=== PATIENT | male | born 1980 | race African-American/Black ===

== ENCOUNTER 2017-01-18 15:18 | Emergency (ER) | payer MEDICAID ==
[~2017-01-18] VITALS: Ht 195.6 cm; Wt 82.0 kg
[~2017-01-18 15:18] MED LIST: HYDR12.54 PO; LABE100T PO
[2017-01-18 23:32] LABS: BASOPHILS % 1.4 % (0.0-2.0); HEMATOCRIT. 39.4 % (42.0-52.0); HEMOGLOBIN. 13.1 g/dL (14.0-18.0); LYMPHOCYTES % 33.2 % (20.0-50.0); MEAN CORPUSCULAR HEMOGLOBIN 28.6 pg (28.0-32.0); MEAN CORPUSCULAR VOLUME 85.9 fL (80.0-94.0); MEAN PLATELET VOLUME 8.3 fl (7.4-10.4); MONOCYTES % 9.3 % (2.0-8.0); NEUTROPHILS % 54.1 % (40.0-76.0); PLATELET 265 x1000/uL (130-400); RED BLOOD CELL COUNT 4.59 mill/uL (4.7-6.1); RED CELL DISTRIBUTION WIDTH 14.2 % (11.6-14.6)
[2017-01-18 23:38] LABS: INR 1.1; PARTIAL THROMBOPLASTIN TIME 26.3 sec (24.0-34.0)
[2017-01-18 23:48] LABS: CARBON DIOXIDE 27 mEq/L (21-32); CHLORIDE 99 mEq/L (98-107); TROPONIN I < 0.02 ng/mL (0.00-0.04)
[2017-01-19 01:07] VITALS: BP 154/114
== END 2017-01-19 00:53 | disposition home or self-care (01) ==
LOC: ER 15:19
DX: R07.89 Other chest pain (principal); I10 Essential (primary) hypertension; F41.9 Anxiety disorder, unspecified
CPT/HCPCS: 36415; 71010; 80053; 83690; 84484; 85025; 85610; 85730; 93005; 99285; Z7610

== ENCOUNTER 2017-05-09 11:57 | Emergency (ER) | payer MEDICAID ==
[~2017-05-09] VITALS: Ht 188 cm; Wt 86.0 kg
[2017-05-09] MEDS ORDERED: DIPHENHYDRAMINE 50MG CAPSULE PO ONE (15:45)
[2017-05-09] MEDS ORDERED: KETOROLAC 60MG/2ML VIAL IM ONE (15:45)
[2017-05-09] MEDS ORDERED: TETRACAINE 0.5% OPHTH DROPS 4ML LEFTEYE ONE (15:45)
[2017-05-09] MEDS ORDERED: FLUORESCEIN SODIUM 1MG/STRIP LEFTEYE ONE (16:45)
[2017-05-09 16:55] VITALS: BP 120/82
== END 2017-05-09 17:50 | disposition home or self-care (01) ==
LOC: ER 15:02
DX: H01.9 Unspecified inflammation of eyelid (principal); I10 Essential (primary) hypertension; F17.210 Nicotine dependence, cigarettes, uncomplicated; Z98.890 Other specified postprocedural states
CPT/HCPCS: 96372; 99284; J1885; Z7610; Q0163

== ENCOUNTER 2017-07-25 10:11 | Emergency (ER) | payer MEDICAID, OTHER ==
[~2017-07-25] VITALS: Ht 188 cm; Wt 90.0 kg
[2017-07-25 11:01] VITALS: BP 148/100
[2017-07-25] MEDS ORDERED: TETANUS, DIPHTHERIA, PERTUSSIS VAC/PF 0.5ML (>7YR OLD) IM ONE (11:45)
== END 2017-07-25 12:02 | disposition home or self-care (01) ==
LOC: ER 11:38
DX: S09.22XA Traumatic rupture of left ear drum, initial encounter (principal); I10 Essential (primary) hypertension; Y04.0XXA Assault by unarmed brawl or fight, initial encounter; Y93.89 Activity, other specified; Y92.89 Other specified places as the place of occurrence of the external cause
CPT/HCPCS: 90471; 90715; 99283

== ENCOUNTER 2018-10-08 14:22 | Emergency (ER) | payer MEDICAID ==
[~2018-10-08] VITALS: Ht 188 cm; Wt 86.0 kg
[~2018-10-08 14:22] MED LIST changes: -LABE100T PO; +LABE100T5 PO
[2018-10-08] MEDS ORDERED: IBUPROFEN 600MG TABLET PO ONE (17:15)
[2018-10-08 18:07] VITALS: BP 133/92
== END 2018-10-08 18:39 | disposition home or self-care (01) ==
LOC: ER 15:45
DX: G56.01 Carpal tunnel syndrome, right upper limb (principal); I10 Essential (primary) hypertension; Z98.890 Other specified postprocedural states; Z79.899 Other long term (current) drug therapy
CPT/HCPCS: 29125; 73110; 99283

== ENCOUNTER 2018-12-29 09:02 | Emergency (ER) | payer MEDICAID ==
[~2018-12-29] VITALS: Ht 188 cm; Wt 82.0 kg
[2018-12-29 09:17] VITALS: BP 120/74
== END 2018-12-29 11:00 | disposition left against medical advice (07) ==
LOC: ER 09:02
DX: M79.671 Pain in right foot (principal); Z53.21 Procedure and treatment not carried out due to patient leaving prior to being seen by health care provider

== ENCOUNTER 2019-01-16 04:37 | Emergency (ER) | payer MEDICAID ==
[~2019-01-16] VITALS: Ht 188 cm; Wt 87.0 kg
[2019-01-16 06:58] LABS: CHLORIDE 105 mEq/L (98-107)
[2019-01-16 07:06] LABS: EOSINOPHILS % 4.5 % (0.0-5.0); HEMATOCRIT. 38.3 % (42.0-52.0); HEMOGLOBIN. 12.7 g/dL (14.0-18.0); LYMPHOCYTES % 23.1 % (20.0-50.0); MEAN CORPUSCULAR HEMOGLOBIN 30.2 pg (28.0-32.0); MEAN CORPUSCULAR VOLUME 90.8 fL (80.0-94.0); MEAN PLATELET VOLUME 7.8 fl (7.4-10.4); MONOCYTES % 8.9 % (2.0-8.0); NEUTROPHILS % 62.5 % (40.0-76.0); PLATELET 214 x1000/uL (130-400); RED BLOOD CELL COUNT 4.22 mill/uL (4.7-6.1); RED CELL DISTRIBUTION WIDTH 14.6 % (11.6-14.6)
[2019-01-16] MEDS ORDERED: MORPHINE SULFATE 4 MG/ML CPJ (NOT FOR IM USE) IV ONE (07:30)
[2019-01-16 11:29] VITALS: BP 138/91
== END 2019-01-16 11:44 | disposition home or self-care (01) ==
LOC: ER 04:37
DX: R07.89 Other chest pain (principal)
CPT/HCPCS: 36415; 71045; 80053; 83880; 84484; 85025; 93005; 96374; 99284; J2270; Z7610

== ENCOUNTER 2019-03-08 10:48 | Emergency (ER) | payer MEDICAID ==
[~2019-03-08] VITALS: Ht 190.5 cm; Wt 86.0 kg
[2019-03-08] MEDS ORDERED: ONDANSETRON HCL 4MG/2ML INJ IV STA (11:38)
[2019-03-08] MEDS ORDERED: SODIUM CHLORIDE 0.9% 1,000 ML IV ONE (11:38)
[2019-03-08] MEDS ORDERED: KETOROLAC 30MG/ML VIAL IV STA (11:38)
[2019-03-08] MEDS ORDERED: ACETAMINOPHEN 325MG TABLET PO STA (11:38)
[2019-03-08] MEDS ORDERED: MAGNESIUM/ALUMINUM HYDROXIDE/SIMETHICONE 30ML UDC PO STA (11:38)
[2019-03-08] MEDS ORDERED: PANTOPRAZOLE SODIUM 40 MG/VIAL IV ONE (11:45)
[2019-03-08 12:08] LABS: CLARITY URINE CLEAR (CLEAR); COLOR URINE YELLOW (YELLOW); KETONES URINE 2+ (NEGATIVE); LEUKOCYTE ESTERASE URINE NEGATIVE (NEGATIVE); NITRITE URINE NEGATIVE (NEGATIVE); OCCULT BLOOD URINE NEGATIVE (NEGATIVE); PROTEIN URINE 1+ (NEGATIVE); SPECIFIC GRAVITY URINE 1.023 (1.005-1.030)
[2019-03-08 12:09] LABS: BASOPHILS % 1.3 % (0.0-2.0); EOSINOPHILS % 1.3 % (0.0-5.0); HEMATOCRIT. 41.5 % (42.0-52.0); LYMPHOCYTES % 27.2 % (20.0-50.0); MEAN CORPUSCULAR HEMOGLOBIN 30.7 pg (28.0-32.0); MEAN PLATELET VOLUME 8.8 fl (7.4-10.4); MONOCYTES % 7.5 % (2.0-8.0); NEUTROPHILS % 62.7 % (40.0-76.0); PLATELET 187 x1000/uL (130-400); RED BLOOD CELL COUNT 4.56 mill/uL (4.7-6.1); RED CELL DISTRIBUTION WIDTH 14.2 % (11.6-14.6)
[2019-03-08 12:13] LABS: CHLORIDE 105 mEq/L (98-107); INR 0.9; PROTHROMBIN TIME 9.6 sec (9.6-11.0)
[2019-03-08] MEDS ORDERED: IOHEXOL-300 100 ML BOTTLE ONE (13:02)
[2019-03-08 13:30] VITALS: BP 156/98
== END 2019-03-08 15:35 | disposition home or self-care (01) ==
LOC: ER 12:12
DX: R10.13 Epigastric pain (principal); R79.89 Other specified abnormal findings of blood chemistry; R11.2 Nausea with vomiting, unspecified; R07.89 Other chest pain; I10 Essential (primary) hypertension; Z98.890 Other specified postprocedural states
CPT/HCPCS: 36415; 71045; 74177; 80053; 81003; 83690; 84484; 85025; 85610; 93005; 96361; 96374; 96375; 99284; C9113; J1885; J2405; J7030; Q9967; Z7610

== ENCOUNTER 2019-03-08 19:46 | Emergency (ER) | payer MEDICAID ==
[~2019-03-08] VITALS: Ht 188 cm; Wt 86.0 kg
[2019-03-08 21:01] LABS: CLARITY URINE CLEAR (CLEAR); COLOR URINE YELLOW (YELLOW); KETONES URINE TRACE (NEGATIVE); LEUKOCYTE ESTERASE URINE NEGATIVE (NEGATIVE); NITRITE URINE NEGATIVE (NEGATIVE); OCCULT BLOOD URINE NEGATIVE (NEGATIVE); PH URINE 7.5 (4.5-8.0); PROTEIN URINE NEGATIVE (NEGATIVE); SPECIFIC GRAVITY URINE 1.026 (1.005-1.030)
[2019-03-08 21:04] LABS: BASOPHILS % 0.9 % (0.0-2.0); EOSINOPHILS % 1.1 % (0.0-5.0); HEMATOCRIT. 36.7 % (42.0-52.0); HEMOGLOBIN. 12.4 g/dL (14.0-18.0); LYMPHOCYTES % 24.6 % (20.0-50.0); MEAN CORPUSCULAR HEMOGLOBIN 30.5 pg (28.0-32.0); MEAN PLATELET VOLUME 8.2 fl (7.4-10.4); MONOCYTES % 7.6 % (2.0-8.0); NEUTROPHILS % 65.8 % (40.0-76.0); PLATELET 159 x1000/uL (130-400); RED BLOOD CELL COUNT 4.08 mill/uL (4.7-6.1); RED CELL DISTRIBUTION WIDTH 13.9 % (11.6-14.6)
[2019-03-08 21:08] LABS: CHLORIDE 102 mEq/L (98-107)
[2019-03-08 21:12] LABS: ETHANOL BLOOD < 10 mg/dL
[2019-03-08] MEDS ORDERED: MORPHINE SULFATE 4 MG/ML CPJ (NOT FOR IM USE) IV ONE ×2 (21:30→22:00)
[2019-03-08] MEDS ORDERED: NITROGLYCERIN 0.4MG TABLET SL SL ONE (21:30)
[2019-03-08 21:34] LABS: *AMPHETAMINES SCREEN URINE NEGATIVE (NEGATIVE); *BARBITURATES SCREEN URINE NEGATIVE (NEGATIVE); *BENZODIAZEPINES SCREEN URINE NEGATIVE (NEGATIVE); *COCAINE SCREEN URINE NEGATIVE (NEGATIVE)
[2019-03-08 21:35] LABS: CANNABINOID URINE SCREEN NEGATIVE (NEGATIVE); METHADONE URINE SCREEN NEGATIVE (NEGATIVE); OPIATES URINE SCREEN NEGATIVE (NEGATIVE); PHENCYCLIDINE URINE SCREEN NEGATIVE (NEGATIVE)
[2019-03-08 21:55] VITALS: BP 157/100
== END 2019-03-08 22:14 | disposition short-term general hospital (02) ==
LOC: ER 21:00 → CANBEDREQ 23:41
DX: I21.4 Non-ST elevation (NSTEMI) myocardial infarction (principal); I16.1 Hypertensive emergency; I10 Essential (primary) hypertension
CPT/HCPCS: 36415; 71045; 80053; 80305; 80320; 81003; 83880; 84484; 85025; 93005; 96374; 99291; J2270; 99285; G0480

== ENCOUNTER 2019-09-10 11:35 | Emergency (ER) | payer MEDICAID ==
[~2019-09-10] VITALS: Ht 188 cm; Wt 97.0 kg
[2019-09-10 11:39] VITALS: BP 151/97
== END 2019-09-10 16:49 | disposition left against medical advice (07) ==
LOC: ER 11:43
DX: R07.89 Other chest pain (principal); Z53.21 Procedure and treatment not carried out due to patient leaving prior to being seen by health care provider
CPT/HCPCS: 93005

== ENCOUNTER 2020-02-13 04:15 | Emergency (ER) | payer MEDICAID ==
[~2020-02-13] VITALS: Ht 188 cm; Wt 86.0 kg
[2020-02-13] MEDS ORDERED: ONDANSETRON HCL 4MG/2ML INJ IV STA (04:55)
[2020-02-13] MEDS ORDERED: MORPHINE SULFATE 4 MG/ML CPJ (NOT FOR IM USE) IV STA (04:55)
[2020-02-13] MEDS ORDERED: SODIUM CHLORIDE 0.9% 1,000 ML IV ONE (04:55)
[2020-02-13 04:58] LABS: BASOPHILS % 1.8 % (0.0-2.0); EOSINOPHILS % 3.5 % (0.0-5.0); HEMATOCRIT. 39.6 % (42.0-52.0); HEMOGLOBIN. 13.5 g/dL (14.0-18.0); LYMPHOCYTES % 32.4 % (20.0-50.0); MEAN CORPUSCULAR VOLUME 91.4 fL (80.0-94.0); MEAN PLATELET VOLUME 8.7 fl (7.4-10.4); MONOCYTES % 12.7 % (2.0-8.0); NEUTROPHILS % 49.6 % (40.0-76.0); PLATELET 216 x1000/uL (130-400); RED BLOOD CELL COUNT 4.34 mill/uL (4.7-6.1); RED CELL DISTRIBUTION WIDTH 14.3 % (11.6-14.6)
[2020-02-13] MEDS ORDERED: ASPIRIN 81MG TABLET PO ONE (05:00)
[2020-02-13] MEDS ORDERED: NITROGLYCERIN OINT 1GM/INCH UDPKT TD ONE (05:00)
[2020-02-13 05:05] LABS: CHLORIDE 105 mEq/L (98-107)
[2020-02-13 06:04] VITALS: BP 159/100
== END 2020-02-13 06:06 | disposition home or self-care (01) ==
LOC: ER 04:15
DX: R07.89 Other chest pain (principal); I10 Essential (primary) hypertension; Z79.899 Other long term (current) drug therapy
CPT/HCPCS: 36415; 71045; 80053; 83880; 84484; 85025; 85379; 93005; 96374; 96375; 99285; J2270; J2405; J7030; Z7610

== ENCOUNTER 2021-04-10 17:35 | Emergency (ER) | payer MEDICAID, OTHER ==
[~2021-04-10] VITALS: Ht 182.9 cm; Wt 82.0 kg
[~2021-04-10 17:35] MED LIST changes: +AMLO2.5T45 PO; +METO-539 PO
[2021-04-10 18:30] VITALS: BP 148/98
== END 2021-04-10 18:40 ==
LOC: ER 17:35
DX: Z02.89 Encounter for other administrative examinations (principal); S60.311A Abrasion of right thumb, initial encounter; I10 Essential (primary) hypertension; Y04.0XXA Assault by unarmed brawl or fight, initial encounter; Y93.89 Activity, other specified; Y92.89 Other specified places as the place of occurrence of the external cause; Y99.8 Other external cause status
CPT/HCPCS: 99283

== ENCOUNTER 2021-04-28 14:49 | Inpatient (IN) | payer MEDICAID, OTHER ==
[~2021-04-28] VITALS: Ht 177.8 cm; Wt 83.0 kg
[2021-04-28] MEDS ORDERED: LORAZEPAM 2MG/ML CPJ IV ONE (17:45)
[2021-04-28 18:00] LABS: BASOPHILS % 1.2 % (0.0-2.0); CHLORIDE 105 mEq/L (98-107); EOSINOPHILS % 0.7 % (0.0-5.0); HEMATOCRIT. 42.7 % (42.0-52.0); HEMOGLOBIN. 14.2 g/dL (14.0-18.0); LYMPHOCYTES % 23.6 % (20.0-50.0); MEAN CORPUSCULAR HEMOGLOBIN 30.2 pg (28.0-32.0); MEAN CORPUSCULAR VOLUME 90.7 fL (80.0-94.0); MEAN PLATELET VOLUME 8.6 fl (7.4-10.4); MONOCYTES % 7.6 % (2.0-8.0); NEUTROPHILS % 66.9 % (40.0-76.0); PLATELET 237 x1000/uL (130-400); RED BLOOD CELL COUNT 4.71 mill/uL (4.7-6.1); RED CELL DISTRIBUTION WIDTH 14.2 % (11.6-14.6)
[2021-04-28] MEDS ORDERED: ACETAMINOPHEN 325MG TABLET PO ONE (20:00)
[2021-04-28] MEDS ORDERED: NITROGLYCERIN 0.4MG TABLET SL SL ONE (20:00)
[2021-04-28] MEDS ORDERED: MORPHINE SULFATE 4 MG/ML CPJ (NOT FOR IM USE) IV ONE (20:45)
[2021-04-28] MEDS ORDERED: KETOROLAC 15MG/ML VIAL IV ONE (20:45)
[2021-04-28 21:08] LABS: *BARBITURATES SCREEN URINE NEGATIVE (NEGATIVE); *BENZODIAZEPINES SCREEN URINE NEGATIVE (NEGATIVE); *COCAINE SCREEN URINE NEGATIVE (NEGATIVE); METHADONE URINE SCREEN NEGATIVE (NEGATIVE); OPIATES URINE SCREEN NEGATIVE (NEGATIVE); PHENCYCLIDINE URINE SCREEN NEGATIVE (NEGATIVE)
[2021-04-28 21:09] LABS: CANNABINOID URINE SCREEN NEGATIVE (NEGATIVE)
[2021-04-28 21:10] LABS: *AMPHETAMINES SCREEN URINE NEGATIVE (NEGATIVE)
[2021-04-28] MEDS ORDERED: METOCLOPRAMIDE HCL 10MG/2ML VIAL IV ONE (23:00)
[2021-04-29] MEDS ORDERED: MORPHINE SULFATE 2 MG/ML CPJ (NOT FOR IM USE) IV PRN (01:00)
[2021-04-29] MEDS ORDERED: LOPERAMIDE HCL 2MG CAPSULE PO PRN (02:00)
[2021-04-29] MEDS ORDERED: LOPERAMIDE HCL 2MG CAPSULE PO SCH (02:00)
[2021-04-29] MEDS ORDERED: NALOXONE HCL 0.4MG/ML VIAL IV PRN (08:15)
[2021-04-29 09:00] VITALS: BP 132/108
[2021-04-29] MEDS ORDERED: ONDANSETRON HCL 4MG/2ML INJ IV PRN (09:30)
[2021-04-29] MEDS ORDERED: METOPROLOL TARTRATE 25MG TABLET PO SCH (10:00)
[2021-04-29] MEDS: KETOROLAC 30MG/ML VIAL IV PRN ×3 (10:01→23:32)
[2021-04-29 12:00] VITALS: BP 138/103
[2021-04-29] MEDS: ACETAMINOPHEN 325MG TABLET PO PRN ×2 (13:55→21:30)
[2021-04-29] MEDS: LORAZEPAM 2MG/ML CPJ IV PRN (13:55)
[2021-04-29 14:00] VITALS: BP 132/104
[2021-04-29] MEDS ORDERED: POTASSIUM CHLORIDE 20MEQ TABLET SR PO NR (14:30)
[2021-04-29 16:00] VITALS: BP 145/108
[2021-04-29] MEDS: AMLODIPINE 10MG TABLET PO SCH (17:24)
[2021-04-29 18:00] VITALS: BP 142/104
[2021-04-29 20:00] VITALS: BP 139/102
[2021-04-29] MEDS ORDERED: METOPROLOL TARTRATE 50MG TABLET PO SCH (21:00)
[2021-04-29] MEDS: METOPROLOL TARTRATE 100MG TABLET PO SCH (21:02)
[2021-04-29] MEDS: CHLORDIAZEPOXIDE 5 MG CAPSULE PO SCH (21:02)
[2021-04-30] VITALS (7 sets, daily range): BP systolic 131–145; BP diastolic 86–104
[2021-04-30] MEDS: LORAZEPAM 2MG/ML CPJ IV PRN (03:31)
[2021-04-30] MEDS: CHLORDIAZEPOXIDE 5 MG CAPSULE PO SCH ×3 (06:03→21:24)
[2021-04-30] MEDS: KETOROLAC 30MG/ML VIAL IV PRN ×2 (07:53→21:33)
[2021-04-30] MEDS: METOPROLOL TARTRATE 100MG TABLET PO SCH ×2 (07:54→17:00)
[2021-04-30] MEDS: AMLODIPINE 10MG TABLET PO SCH (07:54)
[2021-04-30 16:19] LABS: BASOPHILS % 0.5 % (0.0-2.0); EOSINOPHILS % 3.4 % (0.0-5.0); HEMATOCRIT. 40.5 % (42.0-52.0); HEMOGLOBIN. 13.4 g/dL (14.0-18.0); LYMPHOCYTES % 13.3 % (20.0-50.0); MEAN CORPUSCULAR HEMOGLOBIN 30.1 pg (28.0-32.0); MEAN PLATELET VOLUME 8.8 fl (7.4-10.4); MONOCYTES % 7.5 % (2.0-8.0); NEUTROPHILS % 75.3 % (40.0-76.0); PLATELET 177 x1000/uL (130-400); RED BLOOD CELL COUNT 4.45 mill/uL (4.7-6.1); RED CELL DISTRIBUTION WIDTH 14.3 % (11.6-14.6)
[2021-04-30 16:41] LABS: CHLORIDE 103 mEq/L (98-107)
[2021-04-30] MEDS ORDERED: IOHEXOL-300 100 ML BOTTLE ONE (23:07)
[2021-05-01] VITALS: BP 116/83
[2021-05-01 04:00] VITALS: BP 117/81
[2021-05-01] MEDS: CHLORDIAZEPOXIDE 5 MG CAPSULE PO SCH ×2 (05:52→13:14)
[2021-05-01] MEDS ORDERED: HYDROCODONE/ACETAMINOPHEN 5/325MG TABLET PO PRN (07:45)
[2021-05-01] MEDS ORDERED: OMEPRAZOLE 20MG CAPSULE EXTENDED RELEASE PO SCH (07:45)
[2021-05-01] MEDS ORDERED: NALOXONE HCL 0.4MG/ML VIAL IV PRN (07:45)
[2021-05-01 08:00] VITALS: BP 102/70
[2021-05-01] MEDS: AMLODIPINE 10MG TABLET PO SCH (08:41)
[2021-05-01] MEDS: METOPROLOL TARTRATE 100MG TABLET PO SCH (08:41)
[2021-05-01 09:47] LABS: BASOPHILS % 0.6 % (0.0-2.0); EOSINOPHILS % 5.9 % (0.0-5.0); HEMATOCRIT. 40.3 % (42.0-52.0); HEMOGLOBIN. 13.3 g/dL (14.0-18.0); LYMPHOCYTES % 17.4 % (20.0-50.0); MEAN CORPUSCULAR HEMOGLOBIN 30.5 pg (28.0-32.0); MEAN CORPUSCULAR VOLUME 92.1 fL (80.0-94.0); MEAN PLATELET VOLUME 8.5 fl (7.4-10.4); MONOCYTES % 7.8 % (2.0-8.0); NEUTROPHILS % 68.3 % (40.0-76.0); PLATELET 181 x1000/uL (130-400); RED BLOOD CELL COUNT 4.37 mill/uL (4.7-6.1)
[2021-05-01 09:57] LABS: CHLORIDE 103 mEq/L (98-107)
[2021-05-01] MEDS ORDERED: AMLO5TAB88 MT (11:09)
[2021-05-01] MEDS ORDERED: METO-539 PO (11:09)
[2021-05-01 12:00] VITALS: BP 106/78
[2021-05-01 13:44] VITALS: BP 106/78
== END 2021-05-01 15:00 | disposition home or self-care (01) | DRG 203 ==
LOC: ER 14:49 → MICUSO 22:51 → 8WST 04-29 08:08
PROVIDERS: ADMIT Internal Medicine; ATTEND Internal Medicine
DX: M94.0 Chondrocostal junction syndrome [Tietze] (principal); K85.90 Acute pancreatitis without necrosis or infection, unspecified; I11.9 Hypertensive heart disease without heart failure; I16.0 Hypertensive urgency; E87.6 Hypokalemia; R00.0 Tachycardia, unspecified; Z79.899 Other long term (current) drug therapy; E88.09 Other disorders of plasma-protein metabolism, not elsewhere classified
CPT/HCPCS: 36415; 71045; 74177; 80048; 80053; 80305; 83880; 84484; 85025; 93005; 99285; J1885; J2060; J2270; J2765; Q9967

== ENCOUNTER 2021-05-31 10:32 | Emergency (ER) | payer MEDICAID ==
[~2021-05-31] VITALS: Ht 185.4 cm; Wt 90.0 kg
[~2021-05-31 10:32] MED LIST changes: -AMLO2.5T45 PO; +AMLO5TAB88 MT; -LABE100T5 PO
[2021-05-31] MEDS ORDERED: FENTANYL CITRATE/PF 50MCG/ML 2ML VIAL IV ONE (12:15)
[2021-05-31] MEDS ORDERED: LORAZEPAM 2MG/ML CPJ IV ONE (12:45)
[2021-05-31 13:01] LABS: BASOPHILS % 1.2 % (0.0-2.0); EOSINOPHILS % 1.4 % (0.0-5.0); HEMATOCRIT. 40.6 % (42.0-52.0); HEMOGLOBIN. 13.7 g/dL (14.0-18.0); LYMPHOCYTES % 33.9 % (20.0-50.0); MEAN CORPUSCULAR HEMOGLOBIN 30.2 pg (28.0-32.0); MEAN CORPUSCULAR VOLUME 89.9 fL (80.0-94.0); MEAN PLATELET VOLUME 7.8 fl (7.4-10.4); MONOCYTES % 10.4 % (2.0-8.0); NEUTROPHILS % 53.1 % (40.0-76.0); PLATELET 308 x1000/uL (130-400); RED BLOOD CELL COUNT 4.52 mill/uL (4.7-6.1); RED CELL DISTRIBUTION WIDTH 14.7 % (11.6-14.6)
[2021-05-31 13:07] LABS: CHLORIDE 108 mEq/L (98-107)
[2021-05-31 14:55] VITALS: BP 139/89
== END 2021-05-31 14:57 | disposition home or self-care (01) ==
LOC: ER 10:40
DX: R07.89 Other chest pain (principal); R06.4 Hyperventilation; I10 Essential (primary) hypertension
CPT/HCPCS: 36415; 71045; 80048; 84484; 85025; 85379; 93005; 96374; 96375; 99285; J2060; J3010; Z7610

== ENCOUNTER 2021-07-24 13:45 | Emergency (ER) | payer MEDICAID, OTHER ==
[~2021-07-24] VITALS: Ht 185.4 cm; Wt 91.0 kg
[2021-07-24 13:48] VITALS: BP 161/124
[2021-07-24] MEDS ORDERED: IBUP-2029 MT ×2 (13:59→14:38)
[2021-07-24] MEDS ORDERED: BO1 TP ×2 (13:59→14:38)
[2021-07-24] MEDS ORDERED: IBUPROFEN 600MG TABLET PO ONE (14:00)
[2021-07-24] MEDS ORDERED: LIDOCAINE HCL/PF 1% 10 MG/ML 5ML VIAL INFIL ONE (14:00)
[2021-07-24] MEDS ORDERED: BACITRACIN ZINC OINT UDPKT TOP ONE (14:00)
[2021-07-24] MEDS ORDERED: HYDR12.54 PO (14:38)
[2021-07-24] MEDS ORDERED: METO-539 PO (14:38)
[2021-07-24] MEDS ORDERED: LIDOCAINE HCL 1% 30ML VIAL (10MG/ML) INFIL NR (15:15)
== END 2021-07-24 15:15 | disposition home or self-care (01) ==
LOC: ER 13:45
DX: S61.412A Laceration without foreign body of left hand, initial encounter (principal); I10 Essential (primary) hypertension; W26.0XXA Contact with knife, initial encounter; Y93.89 Activity, other specified; Y92.89 Other specified places as the place of occurrence of the external cause
CPT/HCPCS: 12002; 99283; J3490

== ENCOUNTER 2021-08-13 18:47 | Emergency (ER) | payer MEDICAID ==
[~2021-08-13] VITALS: Ht 188 cm; Wt 86.0 kg
[~2021-08-13 18:47] MED LIST changes: +BO1 TP; +IBUP-2029 MT
[2021-08-13 18:52] VITALS: BP 148/111
== END 2021-08-13 19:40 | disposition left against medical advice (07) ==
LOC: ER 18:47
DX: Z53.21 Procedure and treatment not carried out due to patient leaving prior to being seen by health care provider (principal)

== ENCOUNTER 2021-08-20 10:50 | Inpatient (IN) | payer MEDICAID ==
[~2021-08-20] VITALS: Ht 188 cm; Wt 82.6 kg
[2021-08-20] MEDS ORDERED: MORPHINE SULFATE 4 MG/ML CPJ (NOT FOR IM USE) IV STA (11:04)
[2021-08-20 11:43] LABS: BASOPHILS % 0.9 % (0.0-2.0); EOSINOPHILS % 1.3 % (0.0-5.0); HEMOGLOBIN. 14.9 g/dL (14.0-18.0); LYMPHOCYTES % 18.7 % (20.0-50.0); MEAN CORPUSCULAR VOLUME 88.3 fL (80.0-94.0); MEAN PLATELET VOLUME 8.2 fl (7.4-10.4); NEUTROPHILS % 72.1 % (40.0-76.0); PLATELET 297 x1000/uL (130-400); RED BLOOD CELL COUNT 4.98 mill/uL (4.7-6.1); RED CELL DISTRIBUTION WIDTH 13.5 % (11.6-14.6)
[2021-08-20] MEDS ORDERED: MAGNESIUM/ALUMINUM HYDROXIDE/SIMETHICONE 30ML UDC PO NR (11:45)
[2021-08-20 11:50] LABS: CHLORIDE 100 mEq/L (98-107)
[2021-08-20 11:54] LABS: ETHANOL BLOOD < 10 mg/dL
[2021-08-20] MEDS ORDERED: MORPHINE SULFATE 4 MG/ML CPJ (NOT FOR IM USE) IV ONE (14:15)
[2021-08-20] MEDS ORDERED: IOHEXOL-350 100 ML BOTTLE ONE (14:26)
[2021-08-20] MEDS ORDERED: DIPHENHYDRAMINE 50MG/ML VIAL IV PRN (15:15)
[2021-08-20] MEDS ORDERED: MORPHINE SULFATE 2 MG/ML CPJ (NOT FOR IM USE) IV PRN (15:15)
[2021-08-20] MEDS ORDERED: ONDANSETRON HCL 4MG/2ML INJ IV PRN (15:15)
[2021-08-20] MEDS ORDERED: CLONIDINE 0.1MG TABLET PO PRN (15:15)
[2021-08-20] MEDS ORDERED: NALOXONE HCL 0.4MG/ML VIAL IV PRN (15:30)
[2021-08-20] MEDS: SODIUM CHLORIDE 0.9% 1,000 ML IV SCH (16:26)
[2021-08-20 17:08] LABS: *AMPHETAMINES SCREEN URINE NEGATIVE (NEGATIVE); *BARBITURATES SCREEN URINE NEGATIVE (NEGATIVE); *BENZODIAZEPINES SCREEN URINE NEGATIVE (NEGATIVE); *COCAINE SCREEN URINE NEGATIVE (NEGATIVE)
[2021-08-20 17:09] LABS: CANNABINOID URINE SCREEN NEGATIVE (NEGATIVE); METHADONE URINE SCREEN NEGATIVE (NEGATIVE); OPIATES URINE SCREEN PRESUMTIVE POSITIVE (NEGATIVE); PHENCYCLIDINE URINE SCREEN NEGATIVE (NEGATIVE)
[2021-08-20 22:00] VITALS: BP 162/111
[2021-08-21] VITALS: BP 152/116
[2021-08-21] MEDS: SODIUM CHLORIDE 0.9% 1,000 ML IV SCH ×2 (03:28→11:36)
[2021-08-21 04:00] VITALS: BP 133/100
[2021-08-21 06:57] LABS: CHLORIDE 102 mEq/L (98-107)
[2021-08-21 07:07] LABS: AMYLASE 72 IU/L (25-115)
[2021-08-21 07:10] LABS: BASOPHILS % 0.9 % (0.0-2.0); EOSINOPHILS % 2.6 % (0.0-5.0); HEMATOCRIT. 40.5 % (42.0-52.0); MEAN CORPUSCULAR HEMOGLOBIN 30.4 pg (28.0-32.0); MEAN CORPUSCULAR VOLUME 88.2 fL (80.0-94.0); MEAN PLATELET VOLUME 8.6 fl (7.4-10.4); NEUTROPHILS % 58.5 % (40.0-76.0); PLATELET 276 x1000/uL (130-400); RED BLOOD CELL COUNT 4.59 mill/uL (4.7-6.1); RED CELL DISTRIBUTION WIDTH 13.5 % (11.6-14.6)
[2021-08-21 08:00] VITALS: BP 132/99
[2021-08-21] MEDS ORDERED: HYDROCHLOROTHIAZIDE 12.5MG CAPSULE PO SCH (09:00)
[2021-08-21] MEDS ORDERED: AMLODIPINE 5MG TABLET PO SCH ×2 (09:00→21:00)
[2021-08-21] MEDS: METOPROLOL TARTRATE 100MG TABLET PO SCH ×2 (11:32→11:38)
== END 2021-08-21 13:40 | disposition left against medical advice (07) | DRG 282 ==
LOC: ER 10:50 → 7EST 15:01 → EDBEDREQ 15:02 → EDBEDREQTM 15:02 → ENRESERV 20:16
PROVIDERS: ADMIT Internal Medicine; ATTEND Internal Medicine
DX: K85.90 Acute pancreatitis without necrosis or infection, unspecified (principal); E87.1 Hypo-osmolality and hyponatremia; R07.9 Chest pain, unspecified; Z53.29 Procedure and treatment not carried out because of patient's decision for other reasons; F17.210 Nicotine dependence, cigarettes, uncomplicated; I10 Essential (primary) hypertension; Z79.899 Other long term (current) drug therapy; Z82.49 Family history of ischemic heart disease and other diseases of the circulatory system; Z71.6 Tobacco abuse counseling; Z71.41 Alcohol abuse counseling and surveillance of alcoholic; Z72.89 Other problems related to lifestyle
CPT/HCPCS: 36415; 71045; 71275; 74176; 76705; 80053; 80076; 80305; 80320; 82150; 83880; 84443; 84484; 85025; 85379; 93005; 93970; 99285; J2270; Q9967; G0480

== ENCOUNTER 2021-09-03 11:08 | Inpatient (IN) | payer MEDICAID ==
[~2021-09-03] VITALS: Ht 190.5 cm; Wt 86.6 kg
[2021-09-03] MEDS ORDERED: MORPHINE SULFATE 4 MG/ML CPJ (NOT FOR IM USE) IV ONE (12:00)
[2021-09-03] MEDS ORDERED: ONDANSETRON HCL 4MG/2ML INJ IV NR (12:15)
[2021-09-03] MEDS ORDERED: SODIUM CHLORIDE 0.9% 1,000 ML IV NR (12:15)
[2021-09-03 13:06] LABS: BASOPHILS % 1.2 % (0.0-2.0); EOSINOPHILS % 5.8 % (0.0-5.0); HEMOGLOBIN. 14.1 g/dL (14.0-18.0); LYMPHOCYTES % 21.7 % (20.0-50.0); MEAN CORPUSCULAR HEMOGLOBIN 29.4 pg (28.0-32.0); MEAN CORPUSCULAR VOLUME 89.8 fL (80.0-94.0); MEAN PLATELET VOLUME 8.4 fl (7.4-10.4); MONOCYTES % 8.2 % (2.0-8.0); NEUTROPHILS % 63.1 % (40.0-76.0); PLATELET 317 x1000/uL (130-400); RED BLOOD CELL COUNT 4.79 mill/uL (4.7-6.1); RED CELL DISTRIBUTION WIDTH 13.7 % (11.6-14.6)
[2021-09-03 13:14] LABS: CHLORIDE 105 mEq/L (98-107)
[2021-09-03 13:17] LABS: ETHANOL BLOOD < 10 mg/dL
[2021-09-03 13:18] LABS: CLARITY URINE CLEAR (CLEAR); COLOR URINE YELLOW (YELLOW); KETONES URINE NEGATIVE (NEGATIVE); LEUKOCYTE ESTERASE URINE NEGATIVE (NEGATIVE); NITRITE URINE NEGATIVE (NEGATIVE); OCCULT BLOOD URINE NEGATIVE (NEGATIVE); PH URINE 6.5 (4.5-8.0); PROTEIN URINE NEGATIVE (NEGATIVE); UROBILINOGEN URINE 0.2 E.U./dL (0.2-1.0)
[2021-09-03 13:32] LABS: *BARBITURATES SCREEN URINE NEGATIVE (NEGATIVE); *BENZODIAZEPINES SCREEN URINE NEGATIVE (NEGATIVE); *COCAINE SCREEN URINE NEGATIVE (NEGATIVE); METHADONE URINE SCREEN NEGATIVE (NEGATIVE); OPIATES URINE SCREEN PRESUMTIVE POSITIVE (NEGATIVE); PHENCYCLIDINE URINE SCREEN NEGATIVE (NEGATIVE)
[2021-09-03 13:33] LABS: *AMPHETAMINES SCREEN URINE NEGATIVE (NEGATIVE); CANNABINOID URINE SCREEN NEGATIVE (NEGATIVE)
[2021-09-03] MEDS ORDERED: ONDANSETRON HCL 4MG/2ML INJ IV PRN (17:45)
[2021-09-03] MEDS: KETOROLAC 30MG/ML VIAL IV PRN (18:52)
[2021-09-04 08:00] VITALS: BP 157/109
[2021-09-04 09:00] VITALS: BP 150/108
[2021-09-04] MEDS ORDERED: PANTOPRAZOLE SODIUM 40 MG/VIAL IV SCH (09:00)
[2021-09-04] MEDS: KETOROLAC 30MG/ML VIAL IV PRN (10:18)
[2021-09-04] MEDS ORDERED: INFLUENZA VACCINE IM ONE (11:00)
[2021-09-04 12:00] VITALS: BP 144/105
[2021-09-04] MEDS ORDERED: AMLODIPINE 10MG TABLET PO SCH (14:25)
[2021-09-04 14:52] VITALS: BP 158/107
== END 2021-09-04 15:15 | disposition home or self-care (01) ==
LOC: ER 11:08 → MICUSO 09-04 01:46 → 7EST 09-04 08:55
PROVIDERS: ADMIT Internal Medicine; ATTEND Internal Medicine
DX: K81.0 Acute cholecystitis (principal); K85.90 Acute pancreatitis without necrosis or infection, unspecified; E88.09 Other disorders of plasma-protein metabolism, not elsewhere classified; F17.200 Nicotine dependence, unspecified, uncomplicated; R07.9 Chest pain, unspecified; I10 Essential (primary) hypertension; Z20.822 Contact with and (suspected) exposure to COVID-19; Z82.49 Family history of ischemic heart disease and other diseases of the circulatory system; Z79.899 Other long term (current) drug therapy; Z71.6 Tobacco abuse counseling
CPT/HCPCS: 36415; 74176; 76705; 80053; 80305; 80320; 81003; 83880; 84484; 85025; 87426; 90686; 99285; C9113; J1885; J2270; J2405; G0480

== ENCOUNTER 2021-09-08 09:25 | Emergency (ER) | payer MEDICAID ==
[~2021-09-08] VITALS: Ht 182.9 cm; Wt 82.0 kg
[2021-09-08 09:50] VITALS: BP 142/90
== END 2021-09-08 10:03 | disposition left against medical advice (07) ==
LOC: ER 09:51
DX: R10.84 Generalized abdominal pain (principal); I10 Essential (primary) hypertension; Z87.19 Personal history of other diseases of the digestive system
CPT/HCPCS: 99283

== ENCOUNTER 2021-10-01 12:09 | Emergency (ER) | payer MEDICAID ==
[~2021-10-01] VITALS: Ht 172.7 cm; Wt 79.0 kg
[2021-10-01] MEDS ORDERED: KETOROLAC 30MG/ML VIAL IV STA (12:17)
[2021-10-01] MEDS ORDERED: ONDANSETRON HCL 4MG/2ML INJ IV STA (12:17)
[2021-10-01] MEDS ORDERED: MORPHINE SULFATE 4 MG/ML CPJ (NOT FOR IM USE) IV ONE (12:30)
[2021-10-01] MEDS ORDERED: SODIUM CHLORIDE 0.9% 1,000 ML IV ONE (12:30)
[2021-10-01 13:08] LABS: CHLORIDE 104 mEq/L (98-107)
[2021-10-01 13:13] LABS: BASOPHILS % 1.2 % (0.0-2.0); HEMATOCRIT. 42.2 % (42.0-52.0); MEAN CORPUSCULAR HEMOGLOBIN 29.1 pg (28.0-32.0); MEAN CORPUSCULAR VOLUME 87.9 fL (80.0-94.0); MEAN PLATELET VOLUME 8.3 fl (7.4-10.4); MONOCYTES % 7.5 % (2.0-8.0); NEUTROPHILS % 58.3 % (40.0-76.0); PLATELET 340 x1000/uL (130-400); RED CELL DISTRIBUTION WIDTH 13.4 % (11.6-14.6)
[2021-10-01 13:14] LABS: ETHANOL BLOOD < 10 mg/dL
[2021-10-01] MEDS ORDERED: MAG-55 MT (13:55)
[2021-10-01] MEDS ORDERED: ONDA4TAB5 MT (13:55)
[2021-10-01] MEDS ORDERED: FAMO20TA8 MT (13:55)
[2021-10-01 14:32] VITALS: BP 143/95
== END 2021-10-01 14:30 | disposition home or self-care (01) ==
LOC: ER 12:09
DX: R10.0 Acute abdomen (principal); Z87.19 Personal history of other diseases of the digestive system
CPT/HCPCS: 36415; 71045; 74018; 80053; 80320; 83690; 84484; 85025; 96361; 96374; 96375; 99284; J2270; J2405; J7030; G0480

== ENCOUNTER 2021-12-24 12:05 | Emergency (ER) | payer MEDICAID ==
[~2021-12-24] VITALS: Ht 185.4 cm; Wt 77.0 kg
[~2021-12-24 12:05] MED LIST changes: +FAMO20TA8 MT; +MAG-55 MT; +ONDA4TAB5 MT
[2021-12-24] MEDS ORDERED: VISCOUS LIDOCAINE 2% 15 ML UDC PO STA (12:11)
[2021-12-24] MEDS ORDERED: MAGNESIUM/ALUMINUM HYDROXIDE/SIMETHICONE 30ML UDC PO STA (12:11)
[2021-12-24] MEDS ORDERED: MORPHINE SULFATE 4 MG/ML CPJ (NOT FOR IM USE) IV STA (12:11)
[2021-12-24] MEDS ORDERED: ONDANSETRON HCL 4MG/2ML INJ IV STA (12:11)
[2021-12-24] MEDS ORDERED: PANTOPRAZOLE SODIUM 40 MG/VIAL IV STA (12:11)
[2021-12-24] MEDS ORDERED: SODIUM CHLORIDE 0.9% 1,000 ML IV ONE (12:15)
[2021-12-24 12:34] LABS: BASOPHILS % 1.4 % (0.0-2.0); EOSINOPHILS % 3.2 % (0.0-5.0); HEMATOCRIT. 42.4 % (42.0-52.0); HEMOGLOBIN. 14.3 g/dL (14.0-18.0); LYMPHOCYTES % 18.6 % (20.0-50.0); MEAN CORPUSCULAR HEMOGLOBIN 29.8 pg (28.0-32.0); MEAN CORPUSCULAR VOLUME 88.1 fL (80.0-94.0); MEAN PLATELET VOLUME 8.4 fl (7.4-10.4); MONOCYTES % 5.7 % (2.0-8.0); NEUTROPHILS % 71.1 % (40.0-76.0); PLATELET 282 x1000/uL (130-400); RED BLOOD CELL COUNT 4.81 mill/uL (4.7-6.1); RED CELL DISTRIBUTION WIDTH 14.6 % (11.6-14.6)
[2021-12-24 12:47] LABS: CHLORIDE 105 mEq/L (98-107)
[2021-12-24 12:49] LABS: ETHANOL BLOOD < 10 mg/dL
[2021-12-24] MEDS ORDERED: MAG-55 MT (15:09)
[2021-12-24] MEDS ORDERED: ONDA4TAB5 MT (15:09)
[2021-12-24] MEDS ORDERED: PROT40 MT (15:09)
[2021-12-24] MEDS ORDERED: HYDR12.54 MT (15:12)
[2021-12-24] MEDS ORDERED: AMLO5TAB88 MT (15:12)
[2021-12-24 15:15] LABS: CLARITY URINE CLEAR (CLEAR); COLOR URINE YELLOW (YELLOW); KETONES URINE NEGATIVE (NEGATIVE); LEUKOCYTE ESTERASE URINE NEGATIVE (NEGATIVE); NITRITE URINE NEGATIVE (NEGATIVE); OCCULT BLOOD URINE NEGATIVE (NEGATIVE); PROTEIN URINE NEGATIVE (NEGATIVE); SPECIFIC GRAVITY URINE 1.013 (1.005-1.030); UROBILINOGEN URINE 0.2 E.U./dL (0.2-1.0)
[2021-12-24 15:38] LABS: *AMPHETAMINES SCREEN URINE NEGATIVE (NEGATIVE); *BARBITURATES SCREEN URINE NEGATIVE (NEGATIVE); *BENZODIAZEPINES SCREEN URINE NEGATIVE (NEGATIVE); *COCAINE SCREEN URINE NEGATIVE (NEGATIVE); CANNABINOID URINE SCREEN NEGATIVE (NEGATIVE)
[2021-12-24 15:39] LABS: METHADONE URINE SCREEN NEGATIVE (NEGATIVE); OPIATES URINE SCREEN PRESUMTIVE POSITIVE (NEGATIVE); PHENCYCLIDINE URINE SCREEN NEGATIVE (NEGATIVE)
[2021-12-24 16:18] VITALS: BP 150/99
== END 2021-12-24 16:21 | disposition home or self-care (01) ==
LOC: ER 12:20
DX: R10.13 Epigastric pain (principal); R07.89 Other chest pain; I10 Essential (primary) hypertension; F10.10 Alcohol abuse, uncomplicated; Y90.0 Blood alcohol level of less than 20 mg/100 ml; F11.90 Opioid use, unspecified, uncomplicated
CPT/HCPCS: 36415; 71045; 76705; 80053; 80305; 80320; 81003; 83690; 84484; 85025; 93005; 96361; 96374; 96375; 99285; C9113; J2270; J2405; J7030; G0480

== ENCOUNTER 2022-01-15 12:51 | Inpatient (IN) | payer MEDICAID ==
[~2022-01-15] VITALS: Ht 188 cm; Wt 85.7 kg
[~2022-01-15 12:51] MED LIST changes: +HYDR12.54 MT; +PROT40 MT
[2022-01-15] MEDS ORDERED: ASPIRIN 325MG TABLET PO NR (13:15)
[2022-01-15 13:44] LABS: BASOPHILS % 1.2 % (0.0-2.0); EOSINOPHILS % 0.8 % (0.0-5.0); HEMATOCRIT. 42.5 % (42.0-52.0); HEMOGLOBIN. 14.3 g/dL (14.0-18.0); MEAN CORPUSCULAR HEMOGLOBIN 29.1 pg (28.0-32.0); MEAN CORPUSCULAR VOLUME 86.6 fL (80.0-94.0); MEAN PLATELET VOLUME 8.4 fl (7.4-10.4); MONOCYTES % 7.4 % (2.0-8.0); NEUTROPHILS % 68.6 % (40.0-76.0); PLATELET 293 x1000/uL (130-400); RED BLOOD CELL COUNT 4.91 mill/uL (4.7-6.1); RED CELL DISTRIBUTION WIDTH 14.3 % (11.6-14.6)
[2022-01-15] MEDS: NITROGLYCERIN 0.4MG TABLET SL SL PRN (13:44)
[2022-01-15] MEDS ORDERED: SODIUM CHLORIDE 0.9% 1,000 ML IV ONE ×2 (13:45→14:45)
[2022-01-15] MEDS ORDERED: MORPHINE SULFATE 4 MG/ML CPJ (NOT FOR IM USE) IV ONE (13:45)
[2022-01-15 13:56] LABS: CHLORIDE 103 mEq/L (98-107)
[2022-01-15 14:07] LABS: HDL CHOLESTEROL 90 mg/dL (40-59); LDL CHOLESTEROL 143 mg/dL (5-100)
[2022-01-15] MEDS ORDERED: SODIUM CHLORIDE 0.9% 1000ML BAG (SEPSIS BOLUS) IV ONE (15:00)
[2022-01-15] MEDS ORDERED: PIPERACILLIN/TAZ 3.375G PREMIX 50 ML IV NR (15:00)
[2022-01-15] MEDS ORDERED: HYDROMORPHONE HCL/PF 2MG/ML CPJ IV NR (15:00)
[2022-01-15] MEDS ORDERED: VANCOMYCIN 1G PREMIX 200 ML IV NR (15:00)
[2022-01-15 21:20] VITALS: BP_SYST 142; BP_SYST 160; BP_DIAS 100; BP_DIAS 92
[2022-01-15] MEDS ORDERED: LABE100T5 PO (23:27)
[2022-01-15] MEDS ORDERED: ASPI-986 PO (23:27)
[2022-01-15] MEDS ORDERED: NALOXONE HCL 0.4MG/ML VIAL IV PRN (23:45)
[2022-01-15] MEDS ORDERED: HYDROCODONE/ACETAMINOPHEN 5/325MG TABLET PO PRN (23:45)
[2022-01-16] VITALS: BP 112/76
[2022-01-16 04:10] VITALS: BP 159/98
[2022-01-16] MEDS ORDERED: PANTOPRAZOLE 40MG DR TABLET PO SCH (07:10)
[2022-01-16 08:00] VITALS: BP 146/105
[2022-01-16] MEDS: METOPROLOL TARTRATE 50MG TABLET PO SCH ×2 (08:46→18:15)
[2022-01-16] MEDS: AMLODIPINE 10MG TABLET PO SCH ×2 (08:46→08:47)
[2022-01-16] MEDS ORDERED: ASPIRIN 325MG EC TABLET PO SCH (09:00)
[2022-01-16] MEDS ORDERED: ISOSORBIDE MONONITRATE 30MG TABLET SR 24HR PO SCH (09:00)
[2022-01-16 10:39] LABS: HEMATOCRIT 36.9 % (42.0-52.0); HEMOGLOBIN 12.3 g/dL (14.0-18.0); MEAN CORPUSCULAR HEMOGLOBIN 29.2 pg (28.0-32.0); MEAN CORPUSCULAR VOLUME 87.9 fL (80.0-94.0); PLATELET 245 x1000/uL (130-400); RED CELL DISTRIBUTION WIDTH 14.2 % (11.6-14.6)
[2022-01-16 11:14] LABS: CHLORIDE 106 mEq/L (98-107)
[2022-01-16 11:21] LABS: HDL CHOLESTEROL 69 mg/dL (40-59); LDL CHOLESTEROL 116 mg/dL (5-100)
[2022-01-16 12:00] VITALS: BP 123/78
[2022-01-16] MEDS ORDERED: DOCUSATE SODIUM 100MG CAPSULE PO PRN (15:30)
[2022-01-16] MEDS ORDERED: CLONIDINE 0.1MG TABLET PO PRN (15:30)
[2022-01-16] MEDS ORDERED: ACETAMINOPHEN 325MG TABLET PO PRN (15:30)
[2022-01-16] MEDS ORDERED: ONDANSETRON HCL 4MG/2ML INJ IV PRN (15:30)
[2022-01-16] MEDS ORDERED: MAGNESIUM/ALUMINUM HYDROXIDE/SIMETHICONE 30ML UDC PO PRN (15:30)
[2022-01-16 16:00] VITALS: BP 137/98
[2022-01-16] MEDS ORDERED: ENOXAPARIN 40MG/0.4ML SYR SUBCUT SCH (16:00)
[2022-01-16 18:15] VITALS: BP 134/98
== END 2022-01-16 21:20 | disposition home or self-care (01) | DRG 203 ==
LOC: ER 12:51 → ENRESERV 17:29 → 8WST 17:32 → EDBEDREQ 17:50 → EDBEDREQTM 17:50 → ER 21:51
PROVIDERS: ADMIT Internal Medicine; ATTEND Internal Medicine
DX: R07.89 Other chest pain (principal); E87.2 Acidosis; E78.5 Hyperlipidemia, unspecified; I10 Essential (primary) hypertension; R74.01 Elevation of levels of liver transaminase levels; F10.11 Alcohol abuse, in remission; Z82.49 Family history of ischemic heart disease and other diseases of the circulatory system; Z20.822 Contact with and (suspected) exposure to COVID-19; Z87.19 Personal history of other diseases of the digestive system
CPT/HCPCS: 36415; 71045; 74176; 80053; 80061; 80320; 83605; 83880; 84484; 85025; 85027; 87426; 93005; 93306; 99291; C9803; J1170; J1650; J2270; J2543; J3370; J7030; G0480

== ENCOUNTER 2022-03-20 19:16 | Inpatient (IN) | payer MEDICAID ==
[~2022-03-20] VITALS: Ht 188 cm; Wt 76.7 kg
[~2022-03-20 19:16] MED LIST changes: +ASPI-986 PO; +LABE100T5 PO
[2022-03-20 20:26] LABS: BASOPHILS % 1.3 % (0.0-2.0); EOSINOPHILS % 3.1 % (0.0-5.0); HEMATOCRIT. 39.9 % (42.0-52.0); HEMOGLOBIN. 13.2 g/dL (14.0-18.0); LYMPHOCYTES % 39.8 % (20.0-50.0); MEAN CORPUSCULAR VOLUME 87.8 fL (80.0-94.0); MONOCYTES % 9.7 % (2.0-8.0); NEUTROPHILS % 46.1 % (40.0-76.0); PLATELET 279 x1000/uL (130-400); RED BLOOD CELL COUNT 4.54 mill/uL (4.7-6.1); RED CELL DISTRIBUTION WIDTH 14.4 % (11.6-14.6)
[2022-03-20 20:28] LABS: CHLORIDE 98 mEq/L (98-107)
[2022-03-20] MEDS ORDERED: ASPIRIN 325MG EC TABLET PO ONE (22:45)
[2022-03-20] MEDS ORDERED: HYDROCODONE/ACETAMINOPHEN 10/325MG TABLET PO ONE (22:45)
[2022-03-20] MEDS ORDERED: NITROGLYCERIN 0.4MG TABLET SL SL ONE (23:15)
[2022-03-21 09:46] VITALS: BP 155/113
[2022-03-21] MEDS ORDERED: ONDANSETRON HCL 4MG/2ML INJ IV PRN (10:15)
[2022-03-21] MEDS ORDERED: LORAZEPAM 0.5MG TABLET PO PRN (10:15)
[2022-03-21] MEDS ORDERED: ACETAMINOPHEN 325MG TABLET PO PRN ×2 (10:15)
[2022-03-21] MEDS ORDERED: IPRATROPIUM/ALBUTEROL 0.5-3(2.5)MG/3ML NEB HHN PRN (10:15)
[2022-03-21] MEDS ORDERED: DOCUSATE SODIUM 100MG CAPSULE PO PRN (10:15)
[2022-03-21] MEDS ORDERED: CLONIDINE 0.1MG TABLET PO PRN (10:15)
[2022-03-21] MEDS ORDERED: NALOXONE HCL 0.4MG/ML VIAL IV PRN (10:45)
[2022-03-21] MEDS: HYDROCODONE/ACETAMINOPHEN 5/325MG TABLET PO PRN ×3 (11:23→20:32)
[2022-03-21 12:00] VITALS: BP 161/114
[2022-03-21 15:40] VITALS: BP 140/98
[2022-03-21] MEDS: FAMOTIDINE 20MG TABLET PO SCH (16:14)
[2022-03-21 18:00] LABS: *AMPHETAMINES SCREEN URINE NEGATIVE (NEGATIVE); *BARBITURATES SCREEN URINE NEGATIVE (NEGATIVE); *BENZODIAZEPINES SCREEN URINE NEGATIVE (NEGATIVE); *COCAINE SCREEN URINE NEGATIVE (NEGATIVE); CANNABINOID URINE SCREEN NEGATIVE (NEGATIVE); METHADONE URINE SCREEN NEGATIVE (NEGATIVE); OPIATES URINE SCREEN PRESUMTIVE POSITIVE (NEGATIVE); PHENCYCLIDINE URINE SCREEN NEGATIVE (NEGATIVE)
[2022-03-21 20:00] VITALS: BP 133/99
[2022-03-21] MEDS: METOPROLOL TARTRATE 50MG TABLET PO SCH (20:50)
[2022-03-22] VITALS: BP 124/77
[2022-03-22 04:00] VITALS: BP 122/91
[2022-03-22 06:11] LABS: BASOPHILS % 1.4 % (0.0-2.0); EOSINOPHILS % 6.1 % (0.0-5.0); HEMATOCRIT. 38.3 % (42.0-52.0); HEMOGLOBIN. 12.7 g/dL (14.0-18.0); MEAN CORPUSCULAR HEMOGLOBIN 29.6 pg (28.0-32.0); MEAN CORPUSCULAR VOLUME 89.2 fL (80.0-94.0); MEAN PLATELET VOLUME 8.5 fl (7.4-10.4); NEUTROPHILS % 51.5 % (40.0-76.0); PLATELET 243 x1000/uL (130-400); RED BLOOD CELL COUNT 4.29 mill/uL (4.7-6.1); RED CELL DISTRIBUTION WIDTH 14.2 % (11.6-14.6)
[2022-03-22 06:30] LABS: CHLORIDE 102 mEq/L (98-107)
[2022-03-22 08:00] VITALS: BP 122/71
[2022-03-22] MEDS: METOPROLOL TARTRATE 50MG TABLET PO SCH (08:59)
[2022-03-22] MEDS: FAMOTIDINE 20MG TABLET PO SCH (08:59)
[2022-03-22] MEDS ORDERED: AMLODIPINE 5MG TABLET PO SCH (09:00)
[2022-03-22] MEDS ORDERED: ASPIRIN 81MG TABLET PO SCH (09:00)
[2022-03-22] MEDS ORDERED: ASPI-1160 PO ×2 (10:35)
[2022-03-22 12:00] VITALS: BP 135/100
[2022-03-22] MEDS ORDERED: METO-539 PO (12:35)
[2022-03-22] MEDS ORDERED: ASPI-1406 MT (12:35)
[2022-04-11] MEDS ORDERED: PROT40 MT (18:54)
== END 2022-03-22 15:00 | disposition home or self-care (01) | DRG 243 ==
LOC: ER 19:16 → 8WST 03-21 03:22 → ENRESERV 03-21 07:17
PROVIDERS: ADMIT Internal Medicine; ATTEND Internal Medicine
DX: K21.9 Gastro-esophageal reflux disease without esophagitis (principal); K74.60 Unspecified cirrhosis of liver; K86.0 Alcohol-induced chronic pancreatitis; E78.5 Hyperlipidemia, unspecified; I10 Essential (primary) hypertension; R74.01 Elevation of levels of liver transaminase levels; Z82.49 Family history of ischemic heart disease and other diseases of the circulatory system; F10.11 Alcohol abuse, in remission; R00.0 Tachycardia, unspecified
CPT/HCPCS: 36415; 71045; 80048; 80053; 80305; 84484; 85025; 93005; 93306; 99285

== ENCOUNTER 2022-04-02 15:57 | Emergency (ER) | payer MEDICAID ==
[~2022-04-02] VITALS: Ht 185.4 cm; Wt 75.0 kg
[~2022-04-02 15:57] MED LIST changes: +ASPI-1406 MT; -ASPI-986 PO; -FAMO20TA8 MT; -HYDR12.54 MT; -IBUP-2029 MT; -LABE100T5 PO
[2022-04-02 16:01] VITALS: BP 145/82
== END 2022-04-02 18:58 | disposition left against medical advice (07) ==
LOC: ER 15:57
DX: Z53.21 Procedure and treatment not carried out due to patient leaving prior to being seen by health care provider (principal)

== ENCOUNTER 2022-04-21 01:23 | Emergency (ER) | payer MEDICAID ==
[~2022-04-21] VITALS: Ht 188 cm; Wt 98.0 kg
[~2022-04-21 01:23] MED LIST changes: +ASPI-1160 PO; +ASPI-986 PO; +FAMO20TA8 MT; +HYDR12.54 MT; +IBUP-2029 MT; +LABE100T5 PO
[2022-04-21 03:12] LABS: BASOPHILS % 1.3 % (0.0-2.0); EOSINOPHILS % 2.2 % (0.0-5.0); HEMATOCRIT. 38.6 % (42.0-52.0); HEMOGLOBIN. 12.9 g/dL (14.0-18.0); LYMPHOCYTES % 25.1 % (20.0-50.0); MEAN CORPUSCULAR HEMOGLOBIN 29.5 pg (28.0-32.0); MEAN CORPUSCULAR VOLUME 88.5 fL (80.0-94.0); MEAN PLATELET VOLUME 7.6 fl (7.4-10.4); MONOCYTES % 7.9 % (2.0-8.0); NEUTROPHILS % 63.5 % (40.0-76.0); PLATELET 345 x1000/uL (130-400); RED BLOOD CELL COUNT 4.36 mill/uL (4.7-6.1); RED CELL DISTRIBUTION WIDTH 14.1 % (11.6-14.6)
[2022-04-21 03:42] LABS: CHLORIDE 100 mEq/L (98-107)
[2022-04-21 03:57] LABS: ETHANOL BLOOD 190 mg/dL
[2022-04-21 04:54] VITALS: BP 130/79
== END 2022-04-21 05:01 | disposition home or self-care (01) ==
LOC: ER 01:23
DX: S00.03XA Contusion of scalp, initial encounter (principal); R56.9 Unspecified convulsions; F10.129 Alcohol abuse with intoxication, unspecified; I10 Essential (primary) hypertension; W18.11XA Fall from or off toilet without subsequent striking against object, initial encounter; Y90.6 Blood alcohol level of 120-199 mg/100 ml; Y93.89 Activity, other specified; Y92.89 Other specified places as the place of occurrence of the external cause; Y99.8 Other external cause status
CPT/HCPCS: 36415; 70450; 71045; 80053; 80320; 82962; 83690; 84443; 85025; 99285; Z7610; G0480

== ENCOUNTER 2022-07-20 16:36 | Emergency (ER) | payer MEDICAID ==
[~2022-07-20] VITALS: Ht 180.3 cm; Wt 90.0 kg
[~2022-07-20 16:36] MED LIST changes: -ASPI-1160 PO; -ASPI-986 PO; -FAMO20TA8 MT; -HYDR12.54 MT; -IBUP-2029 MT; -LABE100T5 PO
[2022-07-20 16:38] VITALS: BP 171/119
[2022-07-20] MEDS ORDERED: CLONIDINE 0.1MG TABLET PO ONE (16:45)
== END 2022-07-20 18:11 ==
LOC: ER 16:36
DX: I10 Essential (primary) hypertension (principal); G40.909 Epilepsy, unspecified, not intractable, without status epilepticus; Z79.899 Other long term (current) drug therapy; Z79.82 Long term (current) use of aspirin; Z65.3 Problems related to other legal circumstances
CPT/HCPCS: 99283

== ENCOUNTER 2022-09-10 10:23 | Emergency (ER) | payer MEDICAID ==
[~2022-09-10] VITALS: Ht 188 cm; Wt 82.0 kg
[2022-09-10] MEDS ORDERED: SODIUM CHLORIDE 0.9% 1,000 ML IV ONE (11:15)
[2022-09-10] MEDS ORDERED: FAMOTIDINE 20MG/2ML VIAL IV ONE (11:15)
[2022-09-10] MEDS ORDERED: ONDANSETRON HCL 4MG/2ML INJ IV ONE (11:15)
[2022-09-10 12:20] LABS: BASOPHILS % 1.1 % (0.0-2.0); EOSINOPHILS % 2.1 % (0.0-5.0); HEMATOCRIT. 39.8 % (42.0-52.0); HEMOGLOBIN. 13.2 g/dL (14.0-18.0); LYMPHOCYTES % 25.5 % (20.0-50.0); MEAN CORPUSCULAR VOLUME 87.2 fL (80.0-94.0); MEAN PLATELET VOLUME 8.2 fl (7.4-10.4); MONOCYTES % 9.4 % (2.0-8.0); NEUTROPHILS % 61.9 % (40.0-76.0); PLATELET 240 x1000/uL (130-400); RED BLOOD CELL COUNT 4.56 mill/uL (4.7-6.1); RED CELL DISTRIBUTION WIDTH 14.9 % (11.6-14.6)
[2022-09-10] MEDS ORDERED: KETOROLAC 30MG/ML VIAL IV ONE (12:30)
[2022-09-10 12:31] LABS: CHLORIDE 101 mEq/L (98-107)
[2022-09-10] MEDS ORDERED: MORPHINE SULFATE 4 MG/ML CPJ (NOT FOR IM USE) IV ONE (14:00)
[2022-09-10] MEDS ORDERED: IOHEXOL-300 100 ML BOTTLE ONE (14:34)
[2022-09-10 14:45] VITALS: BP 137/81
[2022-09-10 17:11] LABS: CLARITY URINE CLEAR (CLEAR); COLOR URINE YELLOW (YELLOW); KETONES URINE 1+ (NEGATIVE); LEUKOCYTE ESTERASE URINE NEGATIVE (NEGATIVE); NITRITE URINE NEGATIVE (NEGATIVE); OCCULT BLOOD URINE NEGATIVE (NEGATIVE); PROTEIN URINE NEGATIVE (NEGATIVE); SPECIFIC GRAVITY URINE 1.036 (1.005-1.030); UROBILINOGEN URINE 0.2 E.U./dL (0.2-1.0)
== END 2022-09-10 17:00 | disposition home or self-care (01) ==
LOC: ER 10:23
DX: R10.84 Generalized abdominal pain (principal); I10 Essential (primary) hypertension; G40.909 Epilepsy, unspecified, not intractable, without status epilepticus; Z87.19 Personal history of other diseases of the digestive system; Z87.438 Personal history of other diseases of male genital organs; Z79.899 Other long term (current) drug therapy
CPT/HCPCS: 36415; 74177; 80053; 81003; 83690; 84484; 85025; 93005; 96361; 96374; 96375; 99285; J1885; J2270; J2405; J3490; J7030; Q9967

== ENCOUNTER 2023-01-08 21:05 | Emergency (ER) | payer MEDICAID ==
[~2023-01-08] VITALS: Ht 177.8 cm; Wt 97.0 kg
[2023-01-09 03:24] LABS: CHLORIDE 105 mEq/L (98-107)
[2023-01-09 03:31] LABS: EOSINOPHILS % 4.5 % (0.0-5.0); HEMATOCRIT. 43.3 % (42.0-52.0); HEMOGLOBIN. 14.2 g/dL (14.0-18.0); LYMPHOCYTES % 40.8 % (20.0-50.0); MEAN CORPUSCULAR HEMOGLOBIN 29.1 pg (28.0-32.0); MEAN CORPUSCULAR VOLUME 88.5 fL (80.0-94.0); MEAN PLATELET VOLUME 8.7 fl (7.4-10.4); MONOCYTES % 12.7 % (2.0-8.0); PLATELET 270 x1000/uL (130-400); RED BLOOD CELL COUNT 4.89 mill/uL (4.7-6.1); RED CELL DISTRIBUTION WIDTH 14.4 % (11.6-14.6)
[2023-01-09 03:34] LABS: ETHANOL BLOOD 70 mg/dL
[2023-01-09] MEDS ORDERED: FAMOTIDINE 20MG/2ML VIAL IV STA (03:37)
[2023-01-09] MEDS ORDERED: MORPHINE SULFATE 4 MG/ML CPJ (NOT FOR IM USE) IV STA (03:37)
[2023-01-09] MEDS ORDERED: ONDANSETRON HCL 4MG/2ML INJ IV STA (03:37)
[2023-01-09] MEDS ORDERED: SODIUM CHLORIDE 0.9% 1,000 ML IV ONE (03:45)
[2023-01-09 06:00] VITALS: BP 125/86
[2023-01-09 06:19] LABS: *AMPHETAMINES SCREEN URINE NEGATIVE (NEGATIVE); *BARBITURATES SCREEN URINE NEGATIVE (NEGATIVE); *BENZODIAZEPINES SCREEN URINE NEGATIVE (NEGATIVE); *COCAINE SCREEN URINE NEGATIVE (NEGATIVE); CANNABINOID URINE SCREEN NEGATIVE (NEGATIVE); METHADONE URINE SCREEN NEGATIVE (NEGATIVE); OPIATES URINE SCREEN PRESUMTIVE POSITIVE (NEGATIVE); PHENCYCLIDINE URINE SCREEN NEGATIVE (NEGATIVE)
== END 2023-01-09 06:56 | disposition home or self-care (01) ==
LOC: ER 21:05
DX: R10.13 Epigastric pain (principal); Z86.59 Personal history of other mental and behavioral disorders
CPT/HCPCS: 36415; 71045; 74176; 80053; 80305; 80320; 83690; 84484; 85025; 96361; 96374; 96375; 99285; J2270; J2405; J3490; J7030; Z7610; G0480

== ENCOUNTER 2023-03-21 12:22 | Emergency (ER) | payer MEDICAID ==
[~2023-03-21] VITALS: Ht 167.6 cm; Wt 80.0 kg
[~2023-03-21 12:22] MED LIST changes: +AMLO10TA80 MT; -HYDR12.54 PO; +HYDR25TA MT
[2023-03-21 12:42] VITALS: BP 140/90; PULSE 85; RESP 16; TEMP 98.6; O2SAT 100
[2023-03-21] MEDS ORDERED: ONDANSETRON 4MG ODT PO ONE (13:00)
== END 2023-03-21 15:04 | disposition home or self-care (01) ==
LOC: ER 12:22
DX: R10.9 Unspecified abdominal pain (principal); R11.2 Nausea with vomiting, unspecified
CPT/HCPCS: 99283; Z7610

== ENCOUNTER 2023-03-23 16:50 | Emergency (ER) | payer MEDICAID ==
[~2023-03-23] VITALS: Ht 188 cm; Wt 90.0 kg
[2023-03-23 17:12] VITALS: BP 138/82; PULSE 84; RESP 16; TEMP 98.4; O2SAT 99
== END 2023-03-23 19:45 | disposition left against medical advice (07) ==
LOC: ER 16:50
DX: Z53.21 Procedure and treatment not carried out due to patient leaving prior to being seen by health care provider (principal)

== ENCOUNTER 2023-06-19 10:20 | Emergency (ER) | payer MEDICAID ==
[~2023-06-19] VITALS: Ht 185.4 cm; Wt 90.0 kg
[~2023-06-19 10:20] MED LIST changes: -AMLO10TA80 MT; -AMLO5TAB88 MT; -BO1 TP; -MAG-55 MT; -ONDA4TAB5 MT; -PROT40 MT; +labetalol
[2023-06-19 10:31] VITALS: TEMP 97.4; O2SAT 99
[2023-06-19] MEDS ORDERED: PANTOPRAZOLE SODIUM 40 MG/VIAL IV STA (10:44)
[2023-06-19] MEDS ORDERED: MORPHINE SULFATE 4 MG/ML CPJ (NOT FOR IM USE) IV STA (10:44)
[2023-06-19] MEDS ORDERED: ONDANSETRON HCL 4MG/2ML INJ IV STA (10:44)
[2023-06-19] MEDS ORDERED: SODIUM CHLORIDE 0.9% 1,000 ML IV ONE (10:45)
[2023-06-19 11:37] LABS: BASOPHILS % 1.3 % (0.0-2.0); EOSINOPHILS % 2.9 % (0.0-5.0); HEMATOCRIT. 35.9 % (42.0-52.0); HEMOGLOBIN. 11.9 g/dL (14.0-18.0); LYMPHOCYTES % 24.9 % (20.0-50.0); MEAN CORPUSCULAR HEMOGLOBIN 28.6 pg (28.0-32.0); MEAN CORPUSCULAR HGB CONC 33.2 g/dL (31.0-37.0); MEAN CORPUSCULAR VOLUME 86.2 fL (80.0-94.0); MEAN PLATELET VOLUME 7.2 fl (7.4-10.4); MONOCYTES % 7.7 % (2.0-8.0); NEUTROPHILS % 63.2 % (40.0-76.0); PLATELET 353 x1000/uL (130-400); RED BLOOD CELL COUNT 4.16 mill/uL (4.7-6.1); RED CELL DISTRIBUTION WIDTH 16.3 % (11.6-14.6); WHITE BLOOD COUNT 6.8 x1000/uL (4.5-11.0)
[2023-06-19 11:53] LABS: CHLORIDE 102 mEq/L (98-107); INDEX HEMOLYSI 1 (1-3); INDEX ICTERIC 1 (1-4); INDEX LIPEMIC 1 (1-3); POTASSIUM 4.1 mEq/L (3.5-5.1); SODIUM 136 mEq/L (136-145)
[2023-06-19 12:00] LABS: ALANINE AMINOTRANSFERASE 81 IU/L (13-61); ALBUMIN 3.7 g/dL (3.4-5.0); ASPARTATE AMINOTRANSFERASE 40 IU/L (15-37); BILIRUBIN TOTAL 0.5 mg/dL (0.1-1.0); CARBON DIOXIDE 26 mEq/L (21-32); ETHANOL BLOOD 79 mg/dL (<10); GLUCOSE 84 mg/dL (70-105); PROTEIN TOTAL 8.2 g/dL (6.0-8.3); UREA NITROGEN BLOOD 9 mg/dL (7-21)
[2023-06-19 12:27] LABS: CLARITY URINE CLEAR (CLEAR); COLOR URINE YELLOW (YELLOW); GLUCOSE URINE NEGATIVE (NEGATIVE); KETONES URINE NEGATIVE (NEGATIVE); LEUKOCYTE ESTERASE URINE NEGATIVE (NEGATIVE); NITRITE URINE NEGATIVE (NEGATIVE); OCCULT BLOOD URINE NEGATIVE (NEGATIVE); PH URINE 7.5 (4.5-8.0); PROTEIN URINE TRACE (NEGATIVE); SPECIFIC GRAVITY URINE 1.018 (1.005-1.030)
[2023-06-19 12:30] LABS: RBC URINE NONE SEEN /hpf (0-2); YEAST URINE NONE SEEN
[2023-06-19 12:54] LABS: *AMPHETAMINES SCREEN URINE NEGATIVE (NEGATIVE); *BARBITURATES SCREEN URINE NEGATIVE (NEGATIVE); *BENZODIAZEPINES SCREEN URINE NEGATIVE (NEGATIVE); *COCAINE SCREEN URINE NEGATIVE (NEGATIVE); CANNABINOID URINE SCREEN NEGATIVE (NEGATIVE); ECSTASY MDMA SCREEN URINE CONF.TEST INDICATED (NEGATIVE); OPIATES URINE SCREEN NEGATIVE (NEGATIVE); PHENCYCLIDINE URINE SCREEN NEGATIVE (NEGATIVE)
[2023-06-19 13:01] LABS: BACTERIA URINE RARE; SQUAMOUS EPITHELIAL CELL URINE RARE /lpf (RARE/1+)
[2023-06-19] MEDS ORDERED: FAMO40TA70 MT ×2 (13:07)
[2023-06-19] MEDS ORDERED: MAG-55 MT (13:07)
[2023-06-19 14:55] VITALS: BP 122/78; PULSE 82; RESP 16
[2023-06-21] MEDS ORDERED: FAMO40TA70 MT (18:11)
[2023-06-21] MEDS ORDERED: HYDR-4001 MT (18:11)
[2023-06-21] MEDS ORDERED: MAG-55 MT (18:11)
== END 2023-06-19 15:36 | disposition home or self-care (01) ==
LOC: ER 10:21
DX: K29.20 Alcoholic gastritis without bleeding (principal)
CPT/HCPCS: 80053; 80305; 81003; 80320; 83690; 85025; 36415; 96365; 96366; 96375; 99284; J2405; C9113; J2270; J7030; Z7610 ×2; G0480

== ENCOUNTER 2023-06-24 15:55 | Emergency (ER) | payer MEDICAID ==
[~2023-06-24] VITALS: Ht 188 cm; Wt 87.0 kg
[~2023-06-24 15:55] MED LIST changes: +FAMO40TA70 MT; +HYDR-4001 MT; +MAG-55 MT
[2023-06-24 16:05] VITALS: O2SAT 98
[2023-06-24] MEDS ORDERED: TETANUS, DIPHTHERIA, PERTUSSIS VAC/PF 0.5ML (>10YR OLD) IM ONE (16:15)
[2023-06-24] MEDS ORDERED: HYDROCODONE/ACETAMINOPHEN 5/325MG TABLET PO ONE (16:15)
[2023-06-24] MEDS ORDERED: IBUP-2029 MT (17:20)
[2023-06-24 18:55] VITALS: BP 135/87; PULSE 82; RESP 16; TEMP 97.8
[2023-06-28] MEDS ORDERED: FAMO40TA70 MT (13:03)
[2023-06-28] MEDS ORDERED: HYDR25TA MT (13:03)
[2023-06-28] MEDS ORDERED: ASPI-1406 MT (13:03)
[2023-06-28] MEDS ORDERED: AMLO10TA4 MT (13:03)
== END 2023-06-24 19:01 | disposition home or self-care (01) ==
LOC: ER 15:55
DX: S40.211A Abrasion of right shoulder, initial encounter (principal); R10.9 Unspecified abdominal pain; W18.30XA Fall on same level, unspecified, initial encounter; Y93.89 Activity, other specified; Y92.89 Other specified places as the place of occurrence of the external cause; Y99.8 Other external cause status
CPT/HCPCS: 71045; 73030; 74176; 90471; 90715; 99285

== ENCOUNTER 2023-07-10 23:56 | Emergency (ER) | payer MEDICAID ==
[~2023-07-10] VITALS: Ht 188 cm; Wt 100.0 kg
[~2023-07-10 23:56] MED LIST changes: +AMLO10TA4 MT; -HYDR-4001 MT; -MAG-55 MT; -METO-539 PO
[2023-07-11] VITALS: O2SAT 100
[2023-07-11 00:10] VITALS: TEMP 98.6
[2023-07-11] MEDS ORDERED: MORPHINE SULFATE 4 MG/ML CPJ (NOT FOR IM USE) IV STA (00:47)
[2023-07-11] MEDS ORDERED: ONDANSETRON HCL 4MG/2ML INJ IV STA (00:47)
[2023-07-11] MEDS ORDERED: SODIUM CHLORIDE 0.9% 1,000 ML IV ONE (01:00)
[2023-07-11 01:25] LABS: BASOPHILS % 1.5 % (0.0-2.0); EOSINOPHILS % 5.4 % (0.0-5.0); HEMATOCRIT. 32.8 % (42.0-52.0); HEMOGLOBIN. 10.8 g/dL (14.0-18.0); LYMPHOCYTES % 18.6 % (20.0-50.0); MEAN CORPUSCULAR HEMOGLOBIN 27.7 pg (28.0-32.0); MEAN CORPUSCULAR VOLUME 83.9 fL (80.0-94.0); MEAN PLATELET VOLUME 7.6 fl (7.4-10.4); MONOCYTES % 9.5 % (2.0-8.0); PLATELET 368 x1000/uL (130-400); RED BLOOD CELL COUNT 3.91 mill/uL (4.7-6.1); WHITE BLOOD COUNT 9.1 x1000/uL (4.5-11.0)
[2023-07-11 01:34] LABS: CHLORIDE 106 mEq/L (98-107); INDEX HEMOLYSI 1 (1-3); INDEX ICTERIC 1 (1-4); INDEX LIPEMIC 1 (1-3); POTASSIUM 3.8 mEq/L (3.5-5.1); SODIUM 138 mEq/L (136-145)
[2023-07-11 01:38] LABS: ALBUMIN 3.2 g/dL (3.4-5.0); CALCIUM 8.7 mg/dL (8.5-10.1); CARBON DIOXIDE 27 mEq/L (21-32); GLUCOSE 94 mg/dL (70-105); UREA NITROGEN BLOOD 5 mg/dL (7-21)
[2023-07-11 01:45] LABS: ALANINE AMINOTRANSFERASE 25 IU/L (13-61); ASPARTATE AMINOTRANSFERASE 21 IU/L (15-37); BILIRUBIN TOTAL 0.3 mg/dL (0.1-1.0); CREATININE 0.9 mg/dL (0.6-1.3); PROTEIN TOTAL 7.3 g/dL (6.0-8.3); TROPONIN I HIGH SENSITIVITY 4 ng/L (<78)
[2023-07-11] MEDS ORDERED: FAMO-135 MT (03:49)
[2023-07-11] MEDS ORDERED: FAMOTIDINE 20MG TABLET PO ONE (04:00)
[2023-07-11 04:01] VITALS: BP 137/88; PULSE 82; RESP 15
[2023-07-12] MEDS ORDERED: METO-539 PO (21:30)
[2023-07-12] MEDS ORDERED: LABE100T9 PO (21:30)
== END 2023-07-11 04:10 | disposition home or self-care (01) ==
LOC: ER 23:56
DX: R10.13 Epigastric pain (principal); I10 Essential (primary) hypertension
CPT/HCPCS: 99285; 74176; 96374; 71045; 96361; 96375; 80053; 83690; 85025; 84484; 36415; 93005; J2405; J2270; J7030

== ENCOUNTER 2025-06-09 10:44 | Emergency (ER) | payer MEDICAID ==
[~2025-06-09] VITALS: Ht 188 cm; Wt 86.0 kg
[~2025-06-09 10:44] MED LIST changes: -AMLO10TA4 MT; -ASPI-1406 MT; +FAMO-135 MT; -FAMO40TA70 MT; +LABE100T9 PO; -labetalol
[2025-06-09 10:47] VITALS: TEMP 36.7; O2SAT 99
[2025-06-09 11:12] VITALS: BP 148/73; PULSE 89; RESP 17; O2SAT 99
[2025-06-09 11:22] LABS: BASOPHILS % 1.5 % (0.0-2.0); EOSINOPHILS % 1.8 % (0.0-5.0); HEMATOCRIT. 48.0 % (42.0-52.0); HEMOGLOBIN. 15.7 g/dL (14.0-18.0); LYMPHOCYTES % 35.4 % (20.0-50.0); MEAN PLATELET VOLUME 8.3 fl (7.4-10.4); MONOCYTES % 5.1 % (2.0-8.0); NEUTROPHILS % 56.2 % (40.0-76.0); PLATELET 398 x1000/uL (130-400); RED BLOOD CELL COUNT 5.39 mill/uL (4.7-6.1); RED CELL DISTRIBUTION WIDTH 14.3 % (11.6-14.6)
[2025-06-09 11:47] LABS: CREATININE 1.2 mg/dL (0.6-1.3); UREA NITROGEN BLOOD 14 mg/dL (9-23)
[2025-06-09 11:48] LABS: ASPARTATE AMINOTRANSFERASE 37 IU/L (<34)
[2025-06-09 11:49] LABS: BILIRUBIN DIRECT 0.1 mg/dL (<=3.0); BILIRUBIN TOTAL 0.4 mg/dL (0.1-1.0); PROTEIN TOTAL 8.8 g/dL (6.0-8.3)
[2025-06-09] MEDS: PANTOPRAZOLE 40MG DR TABLET PO ONE (12:40)
[2025-06-09] MEDS: ONDANSETRON 4MG ODT PO ONE (12:40)
[2025-06-09] MEDS ORDERED: PANT40SU MT (13:10)
[2025-06-09] MEDS ORDERED: ONDA4TAB50 MT (13:10)
[2025-06-09] MEDS ORDERED: MAGNESIUM/ALUMINUM HYDROXIDE/SIMETHICONE 30ML UDC PO ONE (13:45)
[2025-06-09] MEDS ORDERED: MORPHINE SULFATE 4 MG/ML INJ (FOR IV/IM USE) IV ONE (14:15)
[2025-06-09] MEDS ORDERED: ONDANSETRON HCL 4MG/2ML INJ IV ONE (14:15)
== END 2025-06-09 15:16 | disposition left against medical advice (07) ==
LOC: ER 10:53 → CMPBEDREQ 17:44
DX: K86.1 Other chronic pancreatitis (principal); I10 Essential (primary) hypertension; Z79.899 Other long term (current) drug therapy; Z87.19 Personal history of other diseases of the digestive system
CPT/HCPCS: 80076; 80048; 80320; 83690; 85025; 36415; 99284; Q0162; A4606; G0480